=== PATIENT | female | born 1990 | race African-American/Black ===

== ENCOUNTER 2016-08-15 08:30 | Emergency (ER) | payer MEDICAID, OTHER ==
[~2016-08-15] VITALS: Ht 165.1 cm; Wt 107.0 kg
[~2016-08-15 08:30] MED LIST: DIFL150T PO; SPRI28TA PO
[2016-08-15 08:31] VITALS: BP 139/80; PULSE 90; RESP 20; TEMP 98.3; O2SAT 100
[2016-08-15] MEDS ORDERED: BENZ100 PO (09:01)
[2016-08-15] MEDS ORDERED: MOME17I EACH NARE (09:01)
[2016-08-15] MEDS ORDERED: IBUP800T23 PO (09:01)
--- NOTE | 2016-08-15 09:02 | PD ---
HPI Chief Complaint: Cold / Flu Symptoms Time Seen by Provider: 08:58 Travel History International Travel<30 days: No Contact w/Intl Traveler<30days: No Traveled to known affect area: No History of Present Illness HPI 26-year-old female presents to the emergency Department with complaint of nasal congestion cough, throat irritation 3 days. Denies fever, vomiting. Denies ear pain. Denies sore throat. Denies chest pain, shortness of breath. Reports sputum production. Has been taking [id number] medications with no relief of symptoms. No known allergies. Has no other medical complaints. No other modifying factors or associated signs and symptoms. PFSH Past Medical History Medical History: Denies Significant Hx Diminished Hearing: No Tetanus Vaccination: Never Vaccinated ?: Not : 2 Para: 2 Past Surgical History Section: Yes (X 2) Social History Alcohol Use: No Tobacco Use: No (3 cig a day ) Substance Use: No Allergies-Medications (Allergen,Severity, Reaction): Coded Allergies: No Known Allergies (Verified , 08/15/16) Reported Meds & Prescriptions Reported Meds & Active Scripts Active Nasonex Nasal [place] (Mometasone Furoate) 50 Mcg/Act Naspr 2 [place] EACH NARE DAILY Ibuprofen 800 Mg Tab 800 Mg PO Q6HR PRN Tessalon Perles (Benzonatate) 100 Mg Cap 100 Mg PO TID PRN Review of Systems Except as stated in HPI: all other systems reviewed are Neg Physical Exam Narrative GENERAL: Well-nourished, well-developed female patient, in no acute distress; afebrile, nontoxic-appearing SKIN: Warm and dry. No rash. HEAD: Atraumatic. Normocephalic. EYES: Pupils equal and round. No scleral icterus. No injection or drainage. ENT: Mucosa pink and moist. Oropharynx with erythema; without edema or exudates. No uvular edema. No uvular, palatal, or tonsillar deviation. Airway patent. EARS: Bilateral pinnae and external canals appear within normal limits. Bilateral tympanic membranes without erythema, dullness or perforation. NECK: Trachea midline. No lymphadenopathy. CARDIOVASCULAR: Regular rate and rhythm. No murmur appreciated. RESPIRATORY: No accessory muscle use. Clear to auscultation. Breath sounds equal bilaterally. No retractions or tachypnea. GASTROINTESTINAL: Abdomen soft, non-tender, nondistended. Hepatic and splenic margins not palpable. Bowel sounds are active 4 quadrants. MUSCULOSKELETAL: No obvious deformities. No clubbing. No cyanosis. No edema. NEUROLOGICAL: Awake and alert. Oriented 3. No obvious cranial nerve deficits. Motor grossly within normal limits. Normal speech. Moves all extremities. 5/5 strength to all extremities. PSYCHIATRIC: Appropriate mood and affect; insight and judgment normal. Data Data Last Documented VS Vital Signs Date Time Temp Pulse Resp B/P Pulse Ox O2 Delivery O2 Flow Rate FiO2 08/15/16 08:46 Room Air 08/15/16 08:31 98.3 90 20 139/80 100 MDM Medical Decision Making Medical Screen Exam Complete: Yes Emergency Medical Condition: Yes Medical Record Reviewed: Yes Differential Diagnosis Viral illness, upper respiratory infection, bronchitis Narrative Course 26-year-old female physical exam consistent with viral illness. Patient is afebrile and nontoxic-appearing. She denies fever, vomiting. Patient says she was exposed to strep pharyngitis by her children last week. Her oropharynx is erythemic and without edema or exudate. I offered to do a rapid strep the patient declined. Discussed viral illness and symptom management. Tiffany Cordero, ibuprofen, Nasonex nasal spray prescribed for home. Instructed patient to follow up with primary care provider. Patient verbalizes understanding and agreement with treatment plan. Patient is medically cleared and stable for discharge. Discussed reasons to return to the emergency department. Patient agrees with treatment plan. The patients vital signs are stable and the patient is stable for outpatient follow-up and treatment. Patient discharged home, stable and in no acute distress. Diagnosis Primary Impression: Viral illness Referrals: Primary Care Physician Patient Instructions: Cold Symptoms (ED), General Instructions, Safe Use of Cough and Cold Medicines (ED) Departure Forms: Tests/Procedures, Work Release Enter return to work date: Aug 17, 2016 Additional Instructions: Ibuprofen or Tylenol as instructed and as needed for fever/pain Fjqo-fey-yuswspk cough and cold medications as directed and as needed for symptom management Get plenty of sleep/rest Drink plenty of fluids to prevent dehydration; popsicles and Gatorade Use an air humidifier/turn off ceiling fans Follow-up with primary care provider Return immediately to the emergency department with worsening of symptoms Med/Other Pt SpecificInfo: Prescription(s) given Scripts Mometasone Nasal [place] (Nasonex Nasal [place])50 Mcg/Act Naspr2 [place] EACH NARE DAILY #1 BOTTLE Ref 0 Prov:Alia Milton 08/15/16 Ibuprofen 800 Mg [id number] Mg PO Q6HR PRN (PAIN) #30 TAB Ref 0 Prov:Alia Milton 08/15/16 Benzonatate (Tessalon Perles)100 Mg [id number] Mg PO TID PRN (COUGH) #10 CAP Ref 0 Prov:Alia Milton 08/15/16 Disposition: 01 DISCHARGE HOME Condition: Stable Alia Milton Aug 15, 2016 09:01
== END 2016-08-15 09:16 | disposition home or self-care (01) ==
LOC: NEPD 08:30
DX: B34.9 Viral infection, unspecified (principal); F17.210 Nicotine dependence, cigarettes, uncomplicated; Z79.899 Other long term (current) drug therapy
CPT/HCPCS: 99284

== ENCOUNTER 2016-11-17 08:25 | Emergency (ER) | payer MEDICAID, OTHER ==
[~2016-11-17] VITALS: Ht 165.1 cm; Wt 100.0 kg
[~2016-11-17 08:25] MED LIST changes: +BENZ100 PO; -DIFL150T PO; +IBUP800T23 PO; +MOME17I EACH NARE; -SPRI28TA PO
[2016-11-17 08:26] VITALS: BP 122/77; PULSE 66; RESP 16; TEMP 98.6; O2SAT 99
[2016-11-17 08:47] VITALS: BP 138/83; PULSE 96; RESP 18; TEMP 98.3; O2SAT 100
--- NOTE | 2016-11-17 08:50 | PD ---
HPI Chief Complaint: Abdominal Pain Time Seen by Provider: 08:50 Travel History International Travel<30 days: No Contact w/Intl Traveler<30days: No Traveled to known affect area: No History of Present Illness HPI 26-year-old female came to the emergency room with history of right flank and groin pain that has been going on for past 2-3 days. She is also complaining of lower back pain. Patient is 6 weeks . Her last menstrual cycle was in October 02. She had a home test done 1 week ago that was positive. She has an OB appointment in December 19. Meanwhile her symptoms started for past 2-3 days. No history of fever or chills. She has been nauseous but no vomiting. Patient denies of any vaginal bleeding or spotting. Pain is worse when she just goes to stand up or sit down. Pain is relieved when she is completely sitting down or after she has walked for a little bit. Patient is A0. Vital signs were stable. She is otherwise a relatively healthy person. She is complaining of some dysuria and frequency. She is not taking any medications are pills. [facility] Past Medical History Narrative Medical List of her past medical, surgical, social and family history is reviewed from the nursing note. Medical History: Denies Significant Hx Diminished Hearing: No Immunizations Current: Yes Tetanus Vaccination: < 5 Years Influenza Vaccination: No ?: LMP: 10/02/16 : 2 Para: 2 Past Surgical History Section: Yes (X 2) Social History Alcohol Use: No Tobacco Use: No Substance Use: No Allergies-Medications (Allergen,Severity, Reaction): Coded Allergies: No Known Allergies (Verified , 11/17/16) Comments No known drug allergies. Reported Meds & Prescriptions Reported Meds & Active Scripts Active Vitamin Formula Tb ( Vit/Iron Fumarate/FA) 27 Mg Iron-800 Mcg Tablet 1 Tab PO ONCE 30 Days Narrative Medication List of her home medications reviewed from the nursing note. Review of Systems Except as stated in HPI: all other systems reviewed are Neg Genitourinary: Positive: Pelvic Pain, Flank Pain Physical Exam Narrative GENERAL: Awake, alert, obese, no obvious distress SKIN: Focused skin assessment warm/dry. HEAD: Atraumatic. Normocephalic. EYES: Pupils equal and round. No scleral icterus. No injection or drainage. ENT: No nasal bleeding or discharge. Mucous membranes pink and moist. NECK: Trachea midline. No JVD. CARDIOVASCULAR: Regular rate and rhythm. No murmur appreciated. RESPIRATORY: No accessory muscle use. Clear to auscultation. Breath sounds equal bilaterally. GASTROINTESTINAL: Abdomen soft, non-tender, nondistended. Hepatic and splenic margins not palpable. MUSCULOSKELETAL: No obvious deformities. No clubbing. No cyanosis. No edema. NEUROLOGICAL: Awake and alert. No obvious cranial nerve deficits. Motor grossly within normal limits. Normal speech. PSYCHIATRIC: Appropriate mood and affect; insight and judgment normal. Data Data Last Documented VS Vital Signs Date Time Temp Pulse Resp B/P (MAP) Pulse Ox O2 Delivery O2 Flow Rate FiO2 11/17/16 11:19 11/17/16 08:47 98.3 96 18 100 Room Air Orders Orders Urinalysis - C+S If Indicated (11/17/16 08:59) Ed Poc Ultrasound (11/17/16 ) Acetaminophen (Tylenol) (11/17/16 10:45) Ed Discharge Order (11/17/16 10:37) Labs Laboratory Tests Test 11/17/16 09:15 Urine Color YELLOW Urine Turbidity CLEAR Urine pH 6.0 Urine Specific [place] 1.018 Urine Protein NEG mg/dL Urine Glucose (UA) NEG mg/dL Urine Ketones 40 mg/dL Urine Occult Blood NEG Urine Nitrite NEG Urine Bilirubin NEG Urine Urobilinogen LESS THAN 2.0 MG/DL Urine Leukocyte Esterase NEG Urine RBC LESS THAN 1 /hpf Urine WBC 2 /hpf Urine Squamous Epithelial Cells <1 /hpf Urine Mucus FEW /lpf Microscopic Urinalysis Comment CULT NOT INDICATED MDM Medical Decision Making Medical Screen Exam Complete: Yes Emergency Medical Condition: Yes Medical Record Reviewed: Yes Differential Diagnosis UTI, pyelonephritis, musculoskeletal pain, round ligament pain, ectopic Narrative Course 10:34 AM UA shows some ketones but otherwise negative. Bedside ultrasound shows a gestational sac. At this point I'm comfortable discharging her home. In my opinion patient has pain from the growing gravid uterus and round ligament pull. I will give her prescription for pills. She needs to follow up with her OB. She'll get some Tylenol for the pain here. Procedures Procedure Narrative Emergency Department Pelvic ultrasound was performed with patient consent. The curvilinear probe was used in the transverse and sagittal views within the suprapubic region revealing intrauterine gestational sac with no pole. EKG Prior to Arrival: No Diagnosis Primary Impression: First trimester Additional Impression: Pelvic pain during Referrals: Primary Care Physician Additional Instructions: Please follow-up with your OB as per the appointment date. Drink lots of fluid to keep herself hydrated. You can take Tylenol as needed for the pain. Return to the ER if the condition worsens or any other new concerns. Med/Other Pt SpecificInfo: Prescription(s) given Scripts Vit/Iron Fumarate/FA ( Vitamin Formula Tb) 27 Mg Iron-800 Mcg Tablet 1 TAB PO ONCE for 30 Days Prov: Boy Rodriguez MD 11/17/16 Disposition: 01 DISCHARGE HOME Condition: Stable Boy Rodriguez MD Nov 17, 2016 08:50
[2016-11-17 10:02] LABS: BLOOD, URINE NEG (NEG); COMMENT (UR) CULT NOT INDICATED; CULTURE IF INDICATED CULT NOT INDICATED; GLUCOSE,URINE NEG (NEG); KETONE, URINE 40 mg/dL (NEG); MUCUS URINE FEW /lpf (OCC); NITRITE,URINE NEG (NEG); SQUAMOUS EPITHELIAL CELL URINE <1 /hpf (0-5); URINE COLOR YELLOW (YELLW/STRAW)
[2016-11-17] MEDS ORDERED: PREN1TAB58 PO (10:37)
[2016-11-17] MEDS ORDERED: ACETAMINOPHEN 325 MG TAB PO ONE (10:45)
== END 2016-11-17 11:20 | disposition home or self-care (01) ==
LOC: NEPC 08:25
DX: O26.891 Other specified pregnancy related conditions, first trimester (principal); R10.2 Pelvic and perineal pain; M54.5 Low back pain; R11.0 Nausea; R30.0 Dysuria; R35.0 Frequency of micturition; Z3A.01 Less than 8 weeks gestation of pregnancy
CPT/HCPCS: 81001; 99283

== ENCOUNTER 2017-01-15 08:33 | Emergency (ER) | payer MEDICAID, OTHER ==
[~2017-01-15] VITALS: Ht 165.1 cm; Wt 100.0 kg
[2017-01-15 09:00] VITALS: BP 103/56; PULSE 85; RESP 18; O2SAT 98
[2017-01-15] MEDS ORDERED: SODIUM CHLORIDE 0.9% FLUSH 10 ML FLUSH IVF PRN (09:00)
[2017-01-15 09:24] LABS: AUTOMATED NEUTROPHIL # 7.3 TH/MM3 (1.8-7.7); BASOPHIL # 0.1 TH/MM3 (0-0.2); BASOPHIL % 0.5 % (0.0-2.0); EOSINOPHIL # 0.2 TH/MM3 (0-0.4); EOSINOPHIL % 1.9 % (0.0-4.0); HEMATOCRIT 30.2 % (35.0-46.0); HEMO FLAGS DIFF FINAL; LYMPH % 24.1 % (9.0-44.0); LYMPHOCYTE # 2.7 TH/MM3 (1.0-4.8); MEAN CELL VOLUME 89.9 FL (80.0-100.0); MEAN CORPUSCULAR HEMOGLOBIN 30.7 PG (27.0-34.0); MEAN CORPUSCULAR HGB CONC 34.1 % (32.0-36.0); MONO % 7.7 % (0.0-8.0); NEUT % 65.8 % (16.0-70.0); PLATELET COUNT 364 TH/MM3 (150-450); RED BLOOD COUNT 3.36 MIL/MM3 (4.00-5.30); RED CELL DISTRIBUTION WIDTH 11.6 % (11.6-17.2); WHITE BLOOD COUNT 11.1 TH/MM3 (4.0-11.0)
[2017-01-15 09:44] LABS: ALT (GPT) 30 U/L (10-53)
[2017-01-15 10:00] LABS: ALKALINE PHOSPHATASE 58 U/L (45-117); BETA HCG QUANT 27594 MIU/ML (0-5); TOTAL BILIRUBIN ADULT 0.3 MG/DL (0.2-1.0)
[2017-01-15 10:17] LABS: BLOOD, URINE NEG (NEG); COMMENT (UR) CULT NOT INDICATED; CULTURE IF INDICATED CULT NOT INDICATED; GLUCOSE,URINE NEG (NEG); KETONE, URINE 40 mg/dL (NEG); MUCUS URINE MOD /lpf (OCC); NITRITE,URINE NEG (NEG); SQUAMOUS EPITHELIAL CELL URINE 1 /hpf (0-5); URINE COLOR YELLOW (YELLW/STRAW)
[2017-01-15 10:19] LABS: ANION GAP 10 MEQ/L (5-15); AST (GOT) 27 U/L (15-37); BICARBONATE 22.9 MEQ/L (21.0-32.0); BLOOD UREA NITROGEN 16 MG/DL (7-18); CHLORIDE 104 MEQ/L (98-107); GLOMERULAR FILTRATION RATE 145 ML/MIN (>89); POTASSIUM 3.8 MEQ/L (3.5-5.1); SODIUM (NA) 137 MEQ/L (136-145)
--- NOTE | 2017-01-15 10:31 | PD ---
HPI Chief Complaint: Fall Time Seen by Provider: 08:49 Travel History International Travel<30 days: No Contact w/Intl Traveler<30days: No Traveled to known affect area: No History of Present Illness HPI 26 yo female arrives after falling at home. She is believed to be 4 months . She had an ultrasound 2 weeks ago which was normal. She reports waking up this morning feeling somewhat nauseated and went to the bathroom. She was slightly lightheaded and lost consciousness and fell to the ground. She thinks she maybe lost consciousness for a second or 2. No incontinence of urine or stool. She reports waking up with some cephalgia on the right side. No vaginal bleeding or discharge. No chest pain shortness of breath accompanied the presyncopal event. She reports a similar episode occurred with a prior . She reports a normal state of health over the past few days. She does attribute some constipation and nausea to her vitamins. She follows with Megan GAUTAM. [facility] Past Medical History Diminished Hearing: No Immunizations Current: Yes ?: LMP: 10/02/16 : 2 Para: 2 Past Surgical History Section: Yes (X 2) Social History Alcohol Use: No Tobacco Use: No Substance Use: No Allergies-Medications (Allergen,Severity, Reaction): Coded Allergies: No Known Allergies (Verified Adverse Reaction, Unknown, 12/19/16) Reported Meds & Prescriptions Reported Meds & Active Scripts Active Vitafol Fe+ 90-1-200 & 50 mg ( Vit W/ Fe Polysacch C) 90 Mg Iron-1 Mg- 50 Mg-200 Mg Cap Review of Systems Except as stated in HPI: all other systems reviewed are Neg General / Constitutional: No: Fever Cardiovascular: No: Chest Pain or Discomfort, Irregular Rhythm Respiratory: No: Shortness of Breath Physical Exam Narrative GENERAL: 26-year-old female no acute distress pleasant SKIN: Focused skin assessment warm/dry. HEAD: No evidence trauma. Normocephalic. EYES: Pupils equal and round. No scleral icterus. No injection or drainage. ENT: No nasal bleeding or discharge. Mucous membranes pink and moist. NECK: Trachea midline. No JVD. CARDIOVASCULAR: Regular rate and rhythm. No murmur appreciated. RESPIRATORY: No accessory muscle use. Clear to auscultation. Breath sounds equal bilaterally. GASTROINTESTINAL: Gravid abdomen. No focus of tenderness. MUSCULOSKELETAL: No obvious deformities. No clubbing. No cyanosis. No evidence DVT. NEUROLOGICAL: Awake and alert. No obvious cranial nerve deficits. Motor grossly within normal limits. Normal speech. PSYCHIATRIC: Appropriate mood and affect; insight and judgment normal. Data Data Last Documented VS Vital Signs Date Time Temp Pulse Resp B/P (MAP) Pulse Ox O2 Delivery O2 Flow Rate FiO2 01/15/17 09:00 85 18 103/56 (72) 98 Room Air vital signs reviewed temp 98.1 Orders Orders Electrocardiogram (01/15/17 08:53) Beta Hcg (Quant/Titer) (01/15/17 08:53) Complete Blood Count With Diff (01/15/17 08:53) Comprehensive Metabolic Panel (01/15/17 08:53) Urinalysis - C+S If Indicated (01/15/17 08:53) Blood Glucose (01/15/17 08:53) Ecg Monitoring (01/15/17 08:53) Iv Access Insert/Monitor (01/15/17 08:53) Oximetry (01/15/17 08:53) Sodium Chloride 0.9% Flush (Ns Flush) (01/15/17 09:00) Ed Discharge Order (01/15/17 10:31) Acetaminophen (Tylenol) (01/15/17 10:45) Labs Laboratory Tests Test 01/15/17 09:00 01/15/17 09:45 White Blood Count 11.1 TH/MM3 Red Blood Count 3.36 MIL/MM3 Hemoglobin 10.3 GM/DL Hematocrit 30.2 % Mean Corpuscular Volume 89.9 FL Mean Corpuscular Hemoglobin 30.7 PG Mean Corpuscular Hemoglobin Concent 34.1 % Red Cell Distribution Width 11.6 % Platelet Count 364 TH/MM3 Mean Platelet Volume 7.1 FL Neutrophils (%) (Auto) 65.8 % Lymphocytes (%) (Auto) 24.1 % Monocytes (%) (Auto) 7.7 % Eosinophils (%) (Auto) 1.9 % Basophils (%) (Auto) 0.5 % Neutrophils # (Auto) 7.3 TH/MM3 Lymphocytes # (Auto) 2.7 TH/MM3 Monocytes # (Auto) 0.9 TH/MM3 Eosinophils # (Auto) 0.2 TH/MM3 Basophils # (Auto) 0.1 TH/MM3 CBC Comment DIFF FINAL Differential Comment Blood Urea Nitrogen 16 MG/DL Creatinine 0.61 MG/DL Random Glucose 87 MG/DL Total Protein 7.2 GM/DL Albumin 2.8 GM/DL Calcium Level 8.5 MG/DL Alkaline Phosphatase 58 U/L Aspartate Amino Transf (AST/SGOT) 27 U/L Alanine Aminotransferase (ALT/SGPT) 30 U/L Total Bilirubin 0.3 MG/DL Sodium Level 137 MEQ/L Potassium Level 3.8 MEQ/L Chloride Level 104 MEQ/L Carbon Dioxide Level 22.9 MEQ/L Anion Gap 10 MEQ/L Estimat Glomerular Filtration Rate 145 ML/MIN Human Chorionic Gonadotropin, Quant 42867 MIU/ML Urine Color YELLOW Urine Turbidity CLEAR Urine pH 6.0 Urine Specific [place] 1.028 Urine Protein TRACE mg/dL Urine Glucose (UA) NEG mg/dL Urine Ketones 40 mg/dL Urine Occult Blood NEG Urine Nitrite NEG Urine Bilirubin NEG Urine Urobilinogen 2.0 MG/DL Urine Leukocyte Esterase NEG Urine RBC 1 /hpf Urine WBC 1 /hpf Urine Squamous Epithelial Cells 1 /hpf Urine Mucus MOD /lpf Microscopic Urinalysis Comment CULT NOT INDICATED MDM Medical Decision Making Medical Screen Exam Complete: Yes Emergency Medical Condition: Yes Medical Record Reviewed: Yes Differential Diagnosis Arrhythmia, vasovagal episode, seizure, anemia, metabolic disarray, UTI Narrative Course EKG shows a sinus rhythm. The patient has been on the monitor since arrival and there has been no arrhythmia or evidence of preexcitation. EKG read is sinus rhythm rate 79 normal axis intervals CBC & BMP Diagram 01/15/17 09:00 Total Protein 7.2, Albumin 2.8 L, Calcium Level 8.5, Alkaline Phosphatase 58, Aspartate Amino Transf (AST/SGOT) 27, Alanine Aminotransferase (ALT/SGPT) 30, Total Bilirubin 0.3 The patient is well-appearing. That urinalysis shows no UTI She requested a bedside ultrasound which was done by me and we could observe a heart rate of 150 with normal activity. Patient reassured. Pt has appointment with Megan Milner tomorrow Diagnosis Primary Impression: Syncope and collapse Additional Impression: Qualified Codes: Z3A.16 - 16 weeks gestation of Referrals: Enedelia Fung 2 days Med/Other Pt SpecificInfo: No Change to Meds Disposition: 01 DISCHARGE HOME Condition: Stable Mo Lawson MD Jan 15, 2017 10:31
[2017-01-15] MEDS ORDERED: ACETAMINOPHEN 325 MG TAB PO ONE (10:45)
[2017-01-15 12:05] VITALS: BP 103/63
[2017-01-16] MEDS ORDERED: CONCCAP2 PO (10:02)
[2017-01-16] MEDS ORDERED: FERRTAB2 PO (11:40)
--- NOTE | 2017-01-16 17:41 | EKG ---
Date Performed: 01/15/2017 Time Performed: 09:00:13 PTAGE: 26 years EKG: Sinus rhythm NORMAL ECG NO PREVIOUS TRACING DOCTOR: Law Sharp Interpretating Date/Time 01/16/2017 17:40:04
== END 2017-01-15 12:07 | disposition home or self-care (01) ==
LOC: NEPC 08:33
DX: O26.892 Other specified pregnancy related conditions, second trimester (principal); R55 Syncope and collapse; R42 Dizziness and giddiness; Z3A.16 16 weeks gestation of pregnancy; Z34.92 Encounter for supervision of normal pregnancy, unspecified, second trimester
CPT/HCPCS: 80053; 81001; 84702; 85025; 93005; 99285

== ENCOUNTER 2017-06-12 15:53 | Emergency (ER) | payer MEDICAID ==
[2017-06-12] MEDS: ONDANSETRON ODT 4 MG TAB PO (17:30)
[2017-06-12 21:01] LABS: BACTERIA, URINE OCC /hpf; BILIRUBIN, URINE NEG (NEG); BLOOD, URINE NEG (NEG); COMMENT (UR) CULT NOT INDICATED; CULTURE IF INDICATED CULT NOT INDICATED; GLUCOSE,URINE NEG (NEG); KETONE, URINE 150 mg/dL (NEG); MUCUS URINE FEW /lpf (OCC); NITRITE,URINE NEG (NEG); SQUAMOUS EPITHELIAL CELL URINE 17 /hpf (0-5); URINE COLOR LIGHT-YELLOW (YELLW/STRAW); URINE LEUKOCYTE ESTERASE LARGE (NEG)
== END 2017-06-13 01:41 | disposition home or self-care (01) ==
LOC: HOBED 06-13 01:41 → NEPD 15:53
DX: O21.2 Late vomiting of pregnancy (principal); O99.013 Anemia complicating pregnancy, third trimester; Z3A.36 36 weeks gestation of pregnancy
CPT/HCPCS: 59025; 81001; 99283-25

== ENCOUNTER 2017-07-04 10:00 | Inpatient (IN) | payer MEDICAID ==
[~2017-07-04] VITALS: Ht 165.1 cm; Wt 98.0 kg
[~2017-07-04 10:00] MED LIST changes: -BENZ100 PO; +CONCCAP2; +FERRCAP6; -IBUP800T23 PO; -MOME17I EACH NARE; +PREN1CAP33 PO; +ZOFR8TAB PO
[2017-07-04] MEDS ORDERED: DEXAMETHASONE SOD PHOS 4 MG/ML VIAL IV ONE (12:00)
[2017-07-04] MEDS ORDERED: OXYTOCIN 10 UNIT/ML AMP IV ONE (12:00)
[2017-07-04] MEDS ORDERED: LIDOCAINE 2%/EPINEPHrine PF 1:200,000 20ML SDV OTHER ONE (12:00)
[2017-07-04] MEDS ORDERED: ONDANSETRON HCL 4 MG/2 ML VIAL IV ONE (12:00)
[2017-07-04] MEDS ORDERED: KETOROLAC TROMETHAMINE 30 MG/ML (IVP) VIAL IV PUSH ONE (12:00)
[2017-07-04] MEDS ORDERED: LACTATED RINGER'S 1000 ML INJ 1,000 ML IV ONE (12:42)
--- NOTE | 2017-07-04 12:57 | HHI.HP ---
History & Physical H&P HPI Chief Complaint Scheduled with tubal ligation Date Seen: July 04, 2017 Travel History International Travel<30 Days: No Contact w/Intl Traveler<30Days: No Known Affected Area: No History of Present Illness HPI The patient is a 27-year-old at 39/1 weeks gestation who presents today for her scheduled with tubal ligation. [facility]. Patient has history of 2 prior C-sections. has been complicated by anemia as well as failed one hour glucose tolerance test however she passed her three hour glucose tolerance testing. She otherwise denies any complications. She denies any concerns or questions at this time. She denies any medication allergies. Para: 2 : 3 History Past Medical History Narrative Medical Anemia Obstetric History Obstetric History Previous 2 Past Surgical History Narrative Surgical 2 Family History Family History: Negative Social History Alcohol Use: No Tobacco Use: No Substance Abuse: No Allergies-Medications (Allergen,Severity, Reaction): Coded Allergies: No Known Allergies (Verified Adverse Reaction, Unknown, 06/12/17) Home Meds Active Scripts Ondansetron (Zofran) 8 Mg Tab, 8 MG PO TID for Nausea/Vomiting for 7 Days, #21 TAB 0 Refills Prov:Dulce Tanner MD 06/12/17 Vit W/ Fe Polysacch C (Vitafol Fe+ 90-1-200 & 50 mg) 90 Mg Iron-1 Mg- 50 Mg-200 Mg Cap, 1 TAB PO DAILY, #30 BOTTLE 11 Refills Prov:Enedelia Fung 02/28/17 Reported Medications Ferrous Fumarate-Iron Polysacc (Integra F 125-1 mg) 125 Mg-1 Mg-40 Mg-3 Mg Cap 06/12/17 Vit W/ Fe Fum-Iron Po (Concept Dha 53.5-38-1 mg) 35 Mg-1 Mg-200 Mg Cap 06/12/17 Review of Systems Except as stated in HPI: all other systems reviewed are Neg Physical Exam Narrative GENERAL: Well-nourished, well-developed patient. SKIN: Warm and dry. HEAD: Normocephalic and atraumatic. EYES: No scleral icterus. No injection or drainage. ENT: No nasal drainage noted. Mucous membranes pink. Airway patent. NECK: Supple, trachea midline. No JVD. CARDIOVASCULAR: Regular rate and rhythm without murmurs, gallops, or rubs. RESPIRATORY: Breath sounds equal bilaterally. No accessory muscle use. ABDOMEN/GI: Abdomen soft, non-tender, bowel sounds present, no rebound, no guarding Gravid to 39 weeks size EXTREMITIES: No cyanosis or edema. BACK: Nontender without obvious deformity. No CVA tenderness. NEUROLOGICAL: Awake and alert. Motor and sensory grossly within normal limits. Normal speech. Data Data Vital Signs Reviewed: Yes Orders Orders Admit To Inpatient (07/04/17 ) Code Status (07/04/17 12:42) Vital Signs (Adult) .ON ADMISSION (07/04/17 12:42) Activity Oob Ad Lauren (07/04/17 12:42) Heart (07/04/17 12:42) Urinary Catheter Management KYLEIGH.Q8H (07/04/17 12:42) ^ Preps (07/04/17 12:42) Scd / Waqar / Foot Pump KYLEIGH.QSHIFT (07/04/17 12:42) ^ Ultrasound For Locatio (07/04/17 12:42) Diet Npo (07/04/17 Lunch) Lactated Ringer's 1000 Ml Inj (Lr 1000 M (07/04/17 12:42) Lactated Ringer's 1000 Ml Inj (Lr 1000 M (07/04/17 13:12) Cefazolin 2 Gm Premix (Ancef 2 Gm Premix (07/04/17 13:45) Citric Acid-Sodium Citrate Liq (Bicitra (07/04/17 14:15) Type And Screen (07/04/17 12:42) Complete Blood Count With Diff (07/04/17 12:42) Urinalysis - C+S If Indicated (07/04/17 12:42) Drug Screen, Random Urine (07/04/17 12:42) Inpatient Certification (07/04/17 ) Specimen To Be Collected PRN (07/04/17 12:42) Specimen To Be Collected PRN (07/04/17 12:42) [facility] Medical Record Reviewed: Yes Plan 27 year old at 39/1 weeks gestation presents for her scheduled with tubal ligation. Patient was seen and examined with Dr. Natarajan. Will give Ancef 2 g IV 1 prior to incision. CBC, type and screen. All questions and concerns were addressed at this time prior to her surgery. Sahil Calvin MD R2 July 04, 2017 12:57
[2017-07-04] MEDS ORDERED: LACTATED RINGER'S 1000 ML INJ 1,000 ML IV SCH (13:12)
[2017-07-04 13:16] LABS: AUTOMATED NEUTROPHIL # 5.3 TH/MM3 (1.8-7.7); BASOPHIL % 0.2 % (0.0-2.0); EOSINOPHIL # 0.1 TH/MM3 (0-0.4); EOSINOPHIL % 1.7 % (0.0-4.0); HEMATOCRIT 29.3 % (35.0-46.0); HEMOGLOBIN 9.9 GM/DL (11.6-15.3); LYMPH % 25.4 % (9.0-44.0); LYMPHOCYTE # 2.1 TH/MM3 (1.0-4.8); MEAN CELL VOLUME 88.2 FL (80.0-100.0); MEAN CORPUSCULAR HEMOGLOBIN 29.8 PG (27.0-34.0); MEAN CORPUSCULAR HGB CONC 33.8 % (32.0-36.0); MONO % 7.5 % (0.0-8.0); MONOCYTE # 0.6 TH/MM3 (0-0.9); NEUT % 65.2 % (16.0-70.0); PLATELET COUNT 307 TH/MM3 (150-450); RED BLOOD COUNT 3.32 MIL/MM3 (4.00-5.30); RED CELL DISTRIBUTION WIDTH 12.2 % (11.6-17.2); WHITE BLOOD COUNT 8.1 TH/MM3 (4.0-11.0)
[2017-07-04] MEDS ORDERED: ACETAMINOPHEN 1000 MG/100 ML 100 ML IV ONE (13:19)
[2017-07-04 13:29] LABS: AMORPHOUS SEDIMENT, URINE RARE; BACTERIA, URINE FEW /hpf; BILIRUBIN, URINE NEG (NEG); BLOOD, URINE NEG (NEG); GLUCOSE,URINE NEG (NEG); KETONE, URINE 40 mg/dL (NEG); MUCUS URINE FEW /lpf (OCC); NITRITE,URINE NEG (NEG); SQUAMOUS EPITHELIAL CELL URINE 2 /hpf (0-5); TRICHOMONAS, URINE RARE; URINE COLOR YELLOW (YELLW/STRAW); URINE LEUKOCYTE ESTERASE LARGE (NEG)
[2017-07-04] MEDS ORDERED: ceFAZolin 2 GM PREMIX 50 ML IV SCH (13:45)
[2017-07-04] MEDS ORDERED: MORPHINE SULFATE PF 5 MG/10 ML VIAL ONE (13:50)
[2017-07-04] MEDS ORDERED: CITRIC ACID-SODIUM CITRATE LIQ 30 ML UDC PO SCH (14:15)
[2017-07-04] MEDS ORDERED: EPIDURAL-DIPHENHYDRAMINE HCL 50 MG CAP PO PRN ×2 (14:37→17:30)
[2017-07-04] MEDS ORDERED: EPIDURAL-NO SYSTEMIC NARCOTICS PRN ×2 (14:37→17:30)
[2017-07-04] MEDS ORDERED: EPIDURAL-NALOXONE HCL 0.4 MG/ML AMP IV PUSH PRN ×2 (14:37→17:30)
[2017-07-04] MEDS ORDERED: EPIDURAL-DIPHENHYDRAMINE HCL 50 MG/ML VIAL IV PUSH PRN ×2 (14:37→17:30)
[2017-07-04] MEDS ORDERED: EPIDURAL-DO NOT ADMINISTER ANTICOAGULANTS PRN ×2 (14:37→17:30)
[2017-07-04] MEDS ORDERED: LIDOCAINE 1.5%/EPINEPHrine 1:200,000 PF SOLN 10ML SDV ONE (15:06)
[2017-07-04] MEDS ORDERED: LIDOCAINE 1.5%/EPINEPHrine 1:200,000 PF 5 ML AMP ONE (15:08)
[2017-07-04] MEDS ORDERED: LIDOCAINE 1%/EPINEPHrine 1:100,000 SOLN 30 ML VIAL ONE (15:11)
[2017-07-04] MEDS ORDERED: OXYTOCIN 30 UNITS-500ML PREMIX 500 ML IV ONE (15:30)
[2017-07-04] MEDS ORDERED: KETOROLAC TROMETHAMINE 60 MG/2 ML (IM) VIAL IM PRN ×2 (15:30)
[2017-07-04] MEDS ORDERED: SIMETHICONE 80 MG CHEWABLE TAB PO PRN (15:30)
[2017-07-04] MEDS ORDERED: SODIUM CHLORIDE 0.9% FLUSH 10 ML FLUSH IV FLUSH PRN (15:30)
[2017-07-04] MEDS ORDERED: ZOLPIDEM TARTRATE 5 MG TAB PO PRN (15:30)
[2017-07-04] MEDS ORDERED: ACETAMINOPHEN 325 MG TAB PO PRN (15:30)
[2017-07-04] MEDS ORDERED: OXYTOCIN 30 UNITS-500ML PREMIX 500 ML ONE (15:31)
[2017-07-04] MEDS ORDERED: MORPHINE SULFATE 4 MG/ML INJ ONE (15:42)
--- NOTE | 2017-07-04 15:49 | MP ---
cc: Nba Sellers MD DATE OF OPERATION: 07/04/2017 PREOPERATIVE DIAGNOSIS: Intrauterine at 39 and 1/7 weeks, history of prior delivery, desires repeat. POSTOPERATIVE DIAGNOSIS: Intrauterine at 39 and 1/7 weeks, history of prior delivery, desires repeat. PROCEDURE PERFORMED: Low transverse delivery via Pfannenstiel skin incision. SURGEON: Nba Natarajan MD DIVISION HUMAN RESOURCES MANAGER: Kirsten, PGY-3. ESTIMATED BLOOD LOSS: 700 mL. URINE OUTPUT: Clear urine throughout the procedure. ANESTHESIA: Spinal anesthesia with Duramorph. COMPLICATIONS: None. FINDINGS: A viable male infant in cephalic presentation with scores of 8 at 1 minute and 9 at 5 minutes, weight was 2820 grams. INDICATIONS FOR PROCEDURE: This is a 27-year-old, now -0-0-3, at 39-1/7 weeks, who presented to the labor and delivery for repeat delivery and tubal ligation. Upon consultation, the patient no longer desires a tubal ligation and just desirous of repeat delivery. DESCRIPTION OF PROCEDURE: The patient was taken to the operating room with IV fluids running. Spinal anesthesia with Duramorph was applied and found to be adequate. She was prepped and draped in the dorsal supine position with a leftward tilt. She was identified as Roshiekyasmine Hernandez. Pfannenstiel skin incision was performed and carried down to the underlying layer of fascia with the Bovie. The fascia was incised in the midline and extended sharply. Khurram clamps were used to grasp the superior aspect of the fascial incision. The underlying rectus muscles were dissected sharply. Bleeding were noted on the rectus muscles at the lower aspect of the fascial incision. This was made hemostatic with a [id number] 0 Vicryl suture. The rectus muscles were in the midline and the parietal peritoneum was identified and entered sharply, was extended superiorly and inferiorly with good visualization of the bladder. The bladder blade was inserted. A few filmy adhesions were noted to the uterine corpus and the knife was used to incise the lower uterine segment above the bladder flap and the uterine incision was extended bluntly without difficulty. The infant's head was brought to the uterine incision and delivered without difficulty or trauma. The rest of the was delivered without difficulty or trauma. Delayed cord clamping was performed. It was then doubly clamped and cut, and the was handed to the waiting resuscitation team. Cord bloods were obtained. The placenta was then delivered without difficulty. Uterus was then exteriorized and cleared of all clots and debris. The uterine incision was closed with 0 Vicryl in a running fashion. A second 0 Vicryl was used to perform an imbricating layer. Multiple areas of oozing were noted along the uterine incision and these were made hemostatic with multiple [id number] sutures. Excellent hemostasis was noted. The uterus was returned to the abdominal cavity. The pelvis and abdominal cavity were copiously irrigated with normal saline. Again, the uterine incision was noted to be hemostatic and the parietal peritoneum was reapproximated with multiple interrupted 3-0 plain gut sutures in an interrupted fashion. Subfascial tissues were noted to be hemostatic and the rectus fascia was closed with an 0 PDS suture in a running fashion. Subcuticular tissues were noted to be hemostatic, and the skin was closed with isrrael. Sponge, lap and needle counts were correct x 2. The patient received 2 grams of Ancef prior to the procedure and was transferred to PACU in stable condition. MD BRENT Patricio Jr/PITO , 03:30 PM , 03:49 PM
[2017-07-04] MEDS ORDERED: MORPHINE SULFATE 4 MG/ML INJ IV ONE (17:00)
[2017-07-04] MEDS ORDERED: HYDROmorphone HCL PF 0.5 MG/0.5 ML SYRINGE IV PRN (17:30)
[2017-07-04] MEDS: ONDANSETRON ODT 4 MG TAB PO PRN ×2 (19:54→23:28)
[2017-07-04] MEDS ORDERED: OXYTOCIN 30 UNITS-500ML PREMIX 500 ML IV PRN (20:30)
[2017-07-04] MEDS: LACTATED RINGER'S 1000 ML INJ 1,000 ML IV SCH (21:00)
[2017-07-05] MEDS ORDERED: PROMETHAZINE INJ 25 MG/ML VIAL IV-CENTRAL SCH (01:15)
[2017-07-05] MEDS ORDERED: ONDANSETRON ODT 4 MG TAB PO SCH (01:15)
[2017-07-05] MEDS ORDERED: PROMETHAZINE INJ 25 MG/ML VIAL IV-CENTRAL PRN (01:30)
[2017-07-05] MEDS ORDERED: PROMETHAZINE INJ 25 MG/ML VIAL IM SCH (01:30)
[2017-07-05] MEDS ORDERED: PROMETHAZINE INJ 25 MG/ML VIAL IM PRN (01:30)
[2017-07-05] MEDS: LACTATED RINGER'S 1000 ML INJ 1,000 ML IV SCH (05:32)
[2017-07-05 05:47] LABS: AUTOMATED NEUTROPHIL # 10.1 TH/MM3 (1.8-7.7); BASOPHIL % 0.1 % (0.0-2.0); HEMATOCRIT 24.5 % (35.0-46.0); HEMOGLOBIN 8.3 GM/DL (11.6-15.3); LYMPH % 13.6 % (9.0-44.0); LYMPHOCYTE # 1.7 TH/MM3 (1.0-4.8); MEAN CELL VOLUME 88.3 FL (80.0-100.0); MEAN CORPUSCULAR HEMOGLOBIN 29.8 PG (27.0-34.0); MEAN CORPUSCULAR HGB CONC 33.8 % (32.0-36.0); MEAN PLATELET VOLUME 7.8 FL (7.0-11.0); MONO % 5.8 % (0.0-8.0); MONOCYTE # 0.7 TH/MM3 (0-0.9); NEUT % 80.5 % (16.0-70.0); PLATELET COUNT 304 TH/MM3 (150-450); RED BLOOD COUNT 2.78 MIL/MM3 (4.00-5.30); RED CELL DISTRIBUTION WIDTH 12.3 % (11.6-17.2); WHITE BLOOD COUNT 12.6 TH/MM3 (4.0-11.0)
[2017-07-05 08:00] VITALS: BP 110/71; PULSE 60; RESP 18; TEMP 98
--- NOTE | 2017-07-05 08:49 | HHI.OB ---
Subjective Post Operative Day: 1 Remarks Patient seen and examined this morning. AFVSS overnight. Postoperative day #1. Patient states her pain has been well-controlled. She reports a mild amount of bleeding and drainage onto her bandage following her surgery, however she states overnight and this morning she has not noticed any further drainage. She denies any pain or tenderness around her incision site. Denies fevers or chills. Decreased lochia. Denies dysuria. No breast tenderness. No nausea or vomiting. Has not yet eaten breakfast this morning. Endorses positive flatus. Ambulating well within room. Denies chest pain, calf pain, shortness of breath, or cough. She otherwise has no other complaints or concerns this morning. Objective Result Diagram: 07/05/17 0530 Objective Remarks GENERAL: Well-nourished, well-developed patient. CARDIOVASCULAR: Regular rate and rhythm without murmurs, gallops, or rubs. RESPIRATORY: Breath sounds equal bilaterally. No accessory muscle use. ABDOMEN/GI: Abdomen soft, non-tender, bowel sounds present. Incision: Clean, dry and intact. [place] intact. Dressing with mild amount of dried blood, no active bleeding or drainage. Fundus: Firm, non-tender at umbilicus. GENITOURINARY: Light to moderate bleeding. EXTREMITIES: No cyanosis or edema, non-tender, without signs of DVT. Medications and IVs Current Medications Medications (Trade) Dose Ordered Sig/Brayden Route Start Time Stop Time Status Last Admin Lactated Ringer's 1,000 ml @ 100 mls/hr Q10H IV 07/04/17 20:22 07/05/17 16:21 07/05/17 05:32 Oxytocin 500 ml @ 100 mls/hr UNSCH X1 PRN IV 07/04/17 20:30 07/05/17 20:29 (NS Flush) 2 ml BID IV FLUSH 07/04/17 21:00 (NS Flush) 2 ml UNSCH PRN IV FLUSH 07/04/17 15:30 (Mylicon Chew) 80 mg QID PRN PO 07/04/17 15:30 (Tylenol) 650 mg Q6H PRN PO 07/04/17 15:30 (Motrin) 600 mg Q6H PRN PO 07/04/17 15:30 (Toradol Inj) 60 mg UNSCH X1 PRN IM 07/04/17 15:30 07/05/17 15:29 (Toradol Inj) 30 mg Q6H PRN IM 07/04/17 15:30 07/05/17 15:29 07/05/17 00:52 (Percocet 5-325 Mg) 1 tab Q4H PRN PO 07/04/17 15:30 (Percocet 5-325 Mg) 2 tab Q4H PRN PO 07/04/17 15:30 (Karuna-Colace) 2 tab Q12H PRN PO 07/04/17 15:30 (Ambien) 5 mg HS PRN PO 07/04/17 15:30 (M-M-R Ii Inj) 0.5 ml ONCE ONCE SQ 07/05/17 16:00 07/05/17 16:01 (Boostrix Inj) 0.5 ml ONCE ONCE IM 07/05/17 16:00 07/05/17 16:01 (Zofran Odt) 4 mg Q4H PRN PO 07/04/17 15:30 07/04/17 23:28 ([facility] Nursing Information) NO SYSTEMIC NARCOTICS TO BE GIVEN FO... UNSCH PRN .XX 07/04/17 14:37 07/05/17 14:36 (Narcan Inj) 0.4 mg UNSCH PRN IV PUSH 07/04/17 14:37 07/05/17 14:36 (Benadryl Inj) 25 mg Q6H PRN IV PUSH 07/04/17 14:37 07/05/17 14:36 (Benadryl) 50 mg Q6H PRN PO 07/04/17 14:37 07/05/17 14:36 07/04/17 18:10 ([facility] Nursing Information) ALL NURSING DEPARTMENTS UNSCH PRN .XX 07/04/17 14:37 07/05/17 14:36 (Dilaudid Pf Inj) 1 mg Q2H PRN IV 07/04/17 17:30 ([facility] Nursing Information) NO SYSTEMIC NARCOTICS TO BE GIVEN FO... UNSCH PRN .XX 07/04/17 17:30 07/05/17 17:29 (Narcan Inj) 0.4 mg UNSCH PRN IV PUSH 07/04/17 17:30 07/05/17 17:29 (Benadryl Inj) 25 mg Q6H PRN IV PUSH 07/04/17 17:30 07/05/17 17:29 (Benadryl) 50 mg Q6H PRN PO 07/04/17 17:30 07/05/17 17:29 ([facility] Nursing Information) ALL NURSING DEPARTMENTS UNSCH PRN .XX 07/04/17 17:30 07/05/17 17:29 (Phenergan Inj) 25 mg Q6H PRN IM 07/05/17 01:30 Assessment/Plan Problem List: (1) care following delivery ICD Codes: Z39.2 - Encounter for routine follow-up Assessment and Plan 27 year-old now POD#1 s/p repeat . 1. Postoperative Care - AFVSS - Incision c/d/i - Postop H&H 8.3/24.5, from 9.9/29.3 - Percocet and Motrin prn pain - Encouraged OOB, as tolerated - Advised pelvic rest x 6 weeks - Contraception: Patient did not have bilateral tubal ligation performed as she did not desire this. Discussed contraception with patient this morning, patient desiring Depo-Provera - Instructed patient to follow-up in 1 week with her OB provider for incision check after stable for hospital discharge wdw OB hospitalist Discharge Planning Anticipate discharge home in 1-2 days pending stable clinical course Sahil Calvin MD R2 July 05, 2017 08:49
[2017-07-05] MEDS ORDERED: medroxyPROGESTERone ACETATE SUSP 150 MG/ML SYRINGE IM ONE (09:00)
[2017-07-05] MEDS: SODIUM CHLORIDE 0.9% FLUSH 10 ML FLUSH IV FLUSH SCH (09:00)
[2017-07-05] MEDS: DOCUSATE SODIUM 50 MG/SENNA 8.6 MG TAB PO PRN (09:16)
[2017-07-05] MEDS: oxyCODONE/ACETAMINOPHEN 5 MG/325 MG TAB PO PRN ×3 (09:18→22:21)
[2017-07-05] MEDS: IBUPROFEN 600 MG TAB PO PRN ×3 (09:18→22:21)
[2017-07-05] MEDS ORDERED: LACTATED RINGER'S 1000 ML INJ 1,000 ML IV ONE (09:45)
[2017-07-05] MEDS ORDERED: MEASLES, MUMPS, RUBELLA VACCINE 0.5 ML VIAL SQ ONE (16:00)
[2017-07-05] MEDS ORDERED: DIPHTH/TETANUS/ACEL PERTUSSIS (BOOSTER) 0.5 ML VIAL/PFS IM ONE (16:00)
[2017-07-05 20:05] VITALS: BP 124/77; PULSE 82; RESP 18; TEMP 98.4
[2017-07-06] MEDS: oxyCODONE/ACETAMINOPHEN 5 MG/325 MG TAB PO PRN ×6 (02:20→23:42)
[2017-07-06] MEDS: DOCUSATE SODIUM 50 MG/SENNA 8.6 MG TAB PO PRN ×3 (02:20→23:41)
[2017-07-06] MEDS: IBUPROFEN 600 MG TAB PO PRN ×4 (06:26→23:41)
--- NOTE | 2017-07-06 08:44 | HHI.OB ---
Subjective Post Operative Day: 2 Remarks Patient seen and examined this morning. AFVSS overnight. Postoperative day #2. Patient states her pain has been up to a 10/10, she reports has been better controlled after taking Percocet and Motrin. Incision not draining. Decreased lochia. Denies dysuria. No breast tenderness. Appetite good. No nausea or vomiting. Endorses positive flatus. Denies fevers or chills, calf pain, shortness of breath, or cough. She otherwise has no other complaints or concerns this morning. Objective Vitals/I&O Vital Signs Date Time Temp Pulse Resp B/P (MAP) Pulse Ox O2 Delivery O2 Flow Rate FiO2 07/05/17 20:05 98.4 82 18 124/77 (93) Result Diagram: 07/05/17 0530 Objective Remarks GENERAL: Well-nourished, well-developed patient. CARDIOVASCULAR: Regular rate and rhythm without murmurs, gallops, or rubs. RESPIRATORY: Breath sounds equal bilaterally. No accessory muscle use. ABDOMEN/GI: Abdomen soft, non-tender, bowel sounds present. Incision: Clean, dry and intact. [place] intact. Fundus: Firm, non-tender at umbilicus. GENITOURINARY: Light to moderate bleeding. EXTREMITIES: No cyanosis or edema, non-tender, without signs of DVT. Medications and IVs Current Medications Medications (Trade) Dose Ordered Sig/Brayden Route Start Time Stop Time Status Last Admin (NS Flush) 2 ml BID IV FLUSH 07/04/17 21:00 (NS Flush) 2 ml UNSCH PRN IV FLUSH 07/04/17 15:30 (Mylicon Chew) 80 mg QID PRN PO 07/04/17 15:30 07/06/17 08:32 (Tylenol) 650 mg Q6H PRN PO 07/04/17 15:30 (Motrin) 600 mg Q6H PRN PO 07/04/17 15:30 07/06/17 06:26 (Percocet 5-325 Mg) 1 tab Q4H PRN PO 07/04/17 15:30 07/05/17 17:48 (Percocet 5-325 Mg) 2 tab Q4H PRN PO 07/04/17 15:30 07/06/17 06:25 (Karuna-Colace) 2 tab Q12H PRN PO 07/04/17 15:30 07/06/17 02:20 (Ambien) 5 mg HS PRN PO 07/04/17 15:30 (Zofran Odt) 4 mg Q4H PRN PO 07/04/17 15:30 07/04/17 23:28 (Dilaudid Pf Inj) 1 mg Q2H PRN IV 07/04/17 17:30 (Phenergan Inj) 25 mg Q6H PRN IM 07/05/17 01:30 Assessment/Plan Problem List: (1) care following delivery ICD Codes: Z39.2 - Encounter for routine follow-up Assessment and Plan 27 year-old now POD#2 s/p repeat . 1. Postoperative Care - AFVSS - Incision c/d/i - Postop H&H 8.3/24.5, from 9.9/29.3 - Percocet and Motrin prn pain - Encouraged OOB, as tolerated - Advised pelvic rest x 6 weeks - Contraception: Patient did not have bilateral tubal ligation performed as she did not desire this. Discussed contraception with patient this morning, patient no longer desiring Depo-Provera, desires OCPs - Instructed patient to follow-up in 1 week with her OB provider for incision check after stable for hospital discharge dw OB hospitalist Discharge Planning Anticipate discharge home tomorrow pending stable clinical course Sahil Calvin MD R2 July 06, 2017 08:44
[2017-07-06] MEDS: SODIUM CHLORIDE 0.9% FLUSH 10 ML FLUSH IV FLUSH SCH (09:00)
[2017-07-06] MEDS ORDERED: DIPHTH/TETANUS/ACEL PERTUSSIS (BOOSTER) 0.5 ML VIAL/PFS IM ONE (16:00)
[2017-07-06 20:38] VITALS: BP 137/89; PULSE 70; RESP 18; TEMP 98.8
[2017-07-07] MEDS: oxyCODONE/ACETAMINOPHEN 5 MG/325 MG TAB PO PRN ×3 (03:42→13:19)
[2017-07-07] MEDS: IBUPROFEN 600 MG TAB PO PRN ×2 (05:54→13:18)
--- NOTE | 2017-07-07 08:25 | HHI.OB ---
Subjective Post Operative Day: 3 Remarks Patient seen and examined this morning. AFVSS overnight. Postoperative day #3. Patient states her pain is been better controlled. Incision not draining. Decreased lochia. Denies dysuria. No breast tenderness. Appetite good. No nausea or vomiting. Endorses flatus. Ambulating well. Denies fevers or chills, calf pain, shortness of breath, or cough. She otherwise has no other complaints or concerns this morning. Objective Vitals/I&O Vital Signs Date Time Temp Pulse Resp B/P (MAP) Pulse Ox O2 Delivery O2 Flow Rate FiO2 07/06/17 20:38 98.8 70 18 137/89 (105) Result Diagram: 07/05/17 0530 Objective Remarks GENERAL: Well-nourished, well-developed patient. CARDIOVASCULAR: Regular rate and rhythm without murmurs, gallops, or rubs. RESPIRATORY: Breath sounds equal bilaterally. No accessory muscle use. ABDOMEN/GI: Abdomen soft, non-tender, bowel sounds present. Incision: Clean, dry and intact. [place] intact. Fundus: Firm, non-tender at umbilicus. GENITOURINARY: Light to moderate bleeding. EXTREMITIES: No cyanosis or edema, non-tender, without signs of DVT. Medications and IVs Current Medications Medications (Trade) Dose Ordered Sig/Brayden Route Start Time Stop Time Status Last Admin (NS Flush) 2 ml BID IV FLUSH 07/04/17 21:00 (NS Flush) 2 ml UNSCH PRN IV FLUSH 07/04/17 15:30 (Mylicon Chew) 80 mg QID PRN PO 07/04/17 15:30 07/06/17 08:32 (Tylenol) 650 mg Q6H PRN PO 07/04/17 15:30 (Motrin) 600 mg Q6H PRN PO 07/04/17 15:30 07/07/17 05:54 (Percocet 5-325 Mg) 1 tab Q4H PRN PO 07/04/17 15:30 07/05/17 17:48 (Percocet 5-325 Mg) 2 tab Q4H PRN PO 07/04/17 15:30 07/07/17 07:57 (Karuna-Colace) 2 tab Q12H PRN PO 07/04/17 15:30 07/06/17 23:41 (Ambien) 5 mg HS PRN PO 07/04/17 15:30 (Zofran Odt) 4 mg Q4H PRN PO 07/04/17 15:30 07/04/17 23:28 (Dilaudid Pf Inj) 1 mg Q2H PRN IV 07/04/17 17:30 (Phenergan Inj) 25 mg Q6H PRN IM 07/05/17 01:30 Assessment/Plan Problem List: (1) care following delivery ICD Codes: Z39.2 - Encounter for routine follow-up Assessment and Plan 27 year-old now POD#3 s/p repeat . 1. Postoperative Care - AFVSS - Incision c/d/i - Postop H&H 8.3/24.5, from 9.9/29.3 - Percocet and Motrin prn pain - Encouraged OOB, as tolerated - Advised pelvic rest x 6 weeks - Contraception: Patient did not have bilateral tubal ligation performed as she did not desire this. Discussed contraception with patient this morning, patient no longer desiring Depo-Provera, desires OCPs - Instructed patient to follow-up in 1 week with her OB provider for incision check after stable for hospital discharge wdw OB hospitalist Discharge Planning Stable for discharge home today Sahil Calvin MD R2 Jul 07, 2017 08:24
--- NOTE | 2017-07-07 08:28 | HHI.DCPOC ---
Discharge Care Plan Diagnosis: (1) care following delivery Report Symptoms to Your Doctor -Temperature above 100.5 degrees -Redness, of incision or excessive or foul smelling drainage -Unusual pain or calf pain -Increased vaginal bleeding -Painful or difficulty urinating -Feelings of extreme sadness or anxiety after 2 weeks Goals to Promote Your Health * To maintain your health at the optimal level, follow-up with your OB provider within 1 week after hospital discharge for an incision check. Directions to Meet Your Goals Take your medications as prescribed Follow your dietary instruction Follow activity as directed Ensure plenty of rest for recovery Drink fluids for hydration Keep your appointments as scheduled Take your immunizations and boosters as scheduled If your symptoms worsen call your PCP, if no PCP go to Urgent Care Center or Emergency Room Smoking is Dangerous to Your Health. Avoid second hand smoke Call the 24-hour crisis hotline for domestic abuse at Sahil Calvin MD R2 Jul 07, 2017 08:28
[2017-07-07] MEDS ORDERED: IBUP-232 PO (08:33)
[2017-07-07] MEDS ORDERED: PERI PO (08:33)
[2017-07-07] MEDS ORDERED: OXYC1TAB63 PO (08:33)
[2017-07-07] MEDS: DOCUSATE SODIUM 50 MG/SENNA 8.6 MG TAB PO PRN (13:19)
== END 2017-07-07 13:35 | disposition home or self-care (01) | DRG 766 ==
LOC: H2EB 12:04 → H1EA 16:54
PROVIDERS: ADMIT Obstetrics & Gynecology; ATTEND Obstetrics & Gynecology
PROC: 10D00Z1 Extraction of Products of Conception, Low, Open Approach (ICD-10-PCS; principal; 2017-07-04)
DX: O34.219 Maternal care for unspecified type scar from previous cesarean delivery (principal); D64.9 Anemia, unspecified; O99.02 Anemia complicating childbirth; Z30.09 Encounter for other general counseling and advice on contraception; Z3A.39 39 weeks gestation of pregnancy; Z37.0 Single live birth
CPT/HCPCS: 59025; 80307; 81001; 85025; 86850; 86900; 86901; 87086; 90715; J0131; J0690; J1100; J1885; J2270; J2274; J2405; J2550; J2590; J7120; Q0163

== ENCOUNTER 2017-07-14 12:23 | Emergency (ER) | payer MEDICAID ==
[2017-07-14] VITALS (8 sets, daily range): BP systolic 160–211; BP diastolic 81–104; PULSE 60–72; RESP 14–16; TEMP 98.3; O2SAT 100
[~2017-07-14] VITALS: Ht 165.1 cm; Wt 100.0 kg
[~2017-07-14 12:23] MED LIST changes: +IBUP-232 PO; +OXYC1TAB63 PO; +PERI PO; -PREN1CAP33 PO; -ZOFR8TAB PO
[2017-07-14] MEDS ORDERED: SODIUM CHLORIDE 0.9% FLUSH 10 ML FLUSH IVF PRN (13:45)
[2017-07-14] MEDS ORDERED: hydrALAZINE HCL 20 MG/ML VIAL IV PUSH ONE (13:45)
[2017-07-14 14:28] LABS: AUTOMATED NEUTROPHIL # 4.8 TH/MM3 (1.8-7.7); BASOPHIL % 0.3 % (0.0-2.0); EOSINOPHIL # 0.2 TH/MM3 (0-0.4); EOSINOPHIL % 2.5 % (0.0-4.0); HEMOGLOBIN 8.9 GM/DL (11.6-15.3); LYMPH % 26.1 % (9.0-44.0); MEAN CELL VOLUME 88.3 FL (80.0-100.0); MEAN CORPUSCULAR HGB CONC 32.9 % (32.0-36.0); MEAN PLATELET VOLUME 7.4 FL (7.0-11.0); MONOCYTE # 0.6 TH/MM3 (0-0.9); NEUT % 63.1 % (16.0-70.0); PLATELET COUNT 461 TH/MM3 (150-450); RED BLOOD COUNT 3.06 MIL/MM3 (4.00-5.30); RED CELL DISTRIBUTION WIDTH 12.3 % (11.6-17.2); WHITE BLOOD COUNT 7.6 TH/MM3 (4.0-11.0)
[2017-07-14] MEDS ORDERED: cloNIDine HCL 0.1 MG TAB PO ONE (14:30)
[2017-07-14 14:36] LABS: INTERNATIONAL NORMALIZED RATIO 1.1 RATIO; PROTHROMBIN TIME - PATIENT 10.7 SEC (9.8-11.6)
[2017-07-14 14:40] LABS: ALBUMIN 2.8 GM/DL (3.4-5.0); ALT (GPT) 18 U/L (10-53); AST (GOT) 10 U/L (15-37); BICARBONATE 27.5 MEQ/L (21.0-32.0); BLOOD UREA NITROGEN 13 MG/DL (7-18); C-REACTIVE PROTEIN 1.32 MG/DL (0.00-0.30); CALCIUM 8.2 MG/DL (8.5-10.1); CHLORIDE 107 MEQ/L (98-107); CREATININE 0.52 MG/DL (0.50-1.00); GLOMERULAR FILTRATION RATE 172 ML/MIN (>89); GLUCOSE,RANDOM 80 MG/DL (74-106); SODIUM (NA) 143 MEQ/L (136-145)
[2017-07-14 14:47] LABS: ALKALINE PHOSPHATASE 88 U/L (45-117); TOTAL BILIRUBIN ADULT 0.4 MG/DL (0.2-1.0); TOTAL PROTEIN 6.8 GM/DL (6.4-8.2); TROPONIN I LESS THAN 0.02 NG/ML (0.02-0.05)
[2017-07-14] MEDS ORDERED: LABETALOL HCL 100 MG/20 ML VIAL IV PUSH ONE ×3 (16:30→17:45)
--- NOTE | 2017-07-14 16:55 | PD ---
Physical Exam Narrative Patient was seen by my community relations assistant and me. Data Data Last Documented VS Vital Signs Date Time Temp Pulse Resp B/P (MAP) Pulse Ox O2 Delivery O2 Flow Rate FiO2 07/14/17 17:31 62 16 211/98 (135) 100 Room Air 07/14/17 12:35 98.3 Orders Orders Electrocardiogram (07/14/17 13:40) Ckmb (Isoenzyme) Profile (07/14/17 13:40) Complete Blood Count With Diff (07/14/17 13:40) Prothrombin Time / Inr (Pt) (07/14/17 13:40) Act Partial Throm Time (Ptt) (07/14/17 13:40) Troponin I (07/14/17 13:40) Ecg Monitoring (07/14/17 13:40) Bilateral Bp Monitoring (07/14/17 13:40) Iv Access Insert/Monitor (07/14/17 13:40) Oximetry (07/14/17 13:40) Oxygen Administration (07/14/17 13:40) Sodium Chloride 0.9% Flush (Ns Flush) (07/14/17 13:45) Comprehensive Metabolic Panel (07/14/17 13:40) C-Reactive Protein (Crp) (07/14/17 13:40) Urinalysis - C+S If Indicated (07/14/17 13:40) Hydralazine Inj (Apresoline Inj) (07/14/17 13:45) Abscess Culture And Gram Stain (07/14/17 13:40) Clonidine (Catapres) (07/14/17 14:30) CKMB (07/14/17 14:10) CKMB% (07/14/17 14:10) Labetalol Inj (Trandate Inj) (07/14/17 16:30) Labetalol Inj (Trandate Inj) (07/14/17 17:00) Labetalol Inj (Trandate Inj) (07/14/17 17:45) Ketorolac Inj (Toradol Inj) (07/14/17 17:45) Acetaminophen (Tylenol) (07/14/17 17:45) Ed Discharge Order (07/14/17 18:23) Labs Laboratory Tests Test 07/14/17 14:10 07/14/17 16:25 White Blood Count 7.6 TH/MM3 Red Blood Count 3.06 MIL/MM3 Hemoglobin 8.9 GM/DL Hematocrit 27.0 % Mean Corpuscular Volume 88.3 FL Mean Corpuscular Hemoglobin 29.0 PG Mean Corpuscular Hemoglobin Concent 32.9 % Red Cell Distribution Width 12.3 % Platelet Count 461 TH/MM3 Mean Platelet Volume 7.4 FL Neutrophils (%) (Auto) 63.1 % Lymphocytes (%) (Auto) 26.1 % Monocytes (%) (Auto) 8.0 % Eosinophils (%) (Auto) 2.5 % Basophils (%) (Auto) 0.3 % Neutrophils # (Auto) 4.8 TH/MM3 Lymphocytes # (Auto) 2.0 TH/MM3 Monocytes # (Auto) 0.6 TH/MM3 Eosinophils # (Auto) 0.2 TH/MM3 Basophils # (Auto) 0.0 TH/MM3 CBC Comment DIFF FINAL Differential Comment Prothrombin Time 10.7 SEC Prothromb Time International Ratio 1.1 RATIO Activated Partial Thromboplast Time 24.0 SEC Blood Urea Nitrogen 13 MG/DL Creatinine 0.52 MG/DL Random Glucose 80 MG/DL Total Protein 6.8 GM/DL Albumin 2.8 GM/DL Calcium Level 8.2 MG/DL Alkaline Phosphatase 88 U/L Aspartate Amino Transf (AST/SGOT) 10 U/L Alanine Aminotransferase (ALT/SGPT) 18 U/L Total Bilirubin 0.4 MG/DL Sodium Level 143 MEQ/L Potassium Level 3.6 MEQ/L Chloride Level 107 MEQ/L Carbon Dioxide Level 27.5 MEQ/L Anion Gap 9 MEQ/L Estimat Glomerular Filtration Rate 172 ML/MIN Total Creatine Kinase 107 U/L Creatine Kinase MB 0.9 NG/ML Troponin I LESS THAN 0.02 NG/ML C-Reactive Protein 1.32 MG/DL Urine Color LIGHT-YELLOW Urine Turbidity CLEAR Urine pH 7.0 Urine Specific [place] 1.014 Urine Protein NEG mg/dL Urine Glucose (UA) NEG mg/dL Urine Ketones NEG mg/dL Urine Occult Blood NEG Urine Nitrite NEG Urine Bilirubin NEG Urine Urobilinogen LESS THAN 2.0 MG/DL Urine Leukocyte Esterase MOD Urine WBC 2 /hpf Urine Squamous Epithelial Cells 1 /hpf Urine Mucus FEW /lpf Microscopic Urinalysis Comment CULT NOT INDICATED MDM Supervised Visit with DARYL: Yes Narrative Course 27 years old female with elevated blood pressure. Patient is 1 week . Diagnosis Primary Impression: Hypertension Qualified Codes: I10 - Essential (primary) hypertension Patient Instructions: General Instructions Med/Other Pt SpecificInfo: Prescription(s) given Scripts [Bactroban Ointment] No Conflict Check 1 APPL TOPICAL BID, #1 Prov: Matt Alonso MD 07/14/17 Sulfamethoxazole-Trimethoprim (Bactrim DS) 800-160 Mg Tab 1 TAB PO BID for Infection, #14 TAB 0 Refills Prov: Matt Alonso MD 07/14/17 Atenolol (Atenolol) 25 Mg Tab 25 MG PO DAILY for Blood Pressure Management, #30 TAB Prov: Matt Alonso MD 07/14/17 Amlodipine (Norvasc) 10 Mg Tab 10 MG PO DAILY for Blood Pressure Management, #30 TAB 0 Refills Prov: Matt Alonso MD 07/14/17 Disposition: 01 DISCHARGE HOME Condition: Stable Matt Alonso MD Jul 14, 2017 16:55
[2017-07-14 16:56] LABS: BILIRUBIN, URINE NEG (NEG); BLOOD, URINE NEG (NEG); GLUCOSE,URINE NEG (NEG); KETONE, URINE NEG (NEG); MUCUS URINE FEW /lpf (OCC); NITRITE,URINE NEG (NEG); SQUAMOUS EPITHELIAL CELL URINE 1 /hpf (0-5); URINE COLOR LIGHT-YELLOW (YELLW/STRAW); URINE LEUKOCYTE ESTERASE MOD (NEG)
[2017-07-14] MEDS ORDERED: KETOROLAC TROMETHAMINE 30 MG/ML (IVP) VIAL IV PUSH ONE (17:45)
[2017-07-14] MEDS ORDERED: ACETAMINOPHEN 325 MG TAB PO ONE (17:45)
--- NOTE | 2017-07-14 17:59 | PD ---
HPI Chief Complaint: Skin Problem Time Seen by Provider: 13:34 Travel History International Travel<30 days: No Contact w/Intl Traveler<30days: No Traveled to known affect area: No History of Present Illness HPI 27-year-old female presents emergency department with concerned about recent incision site with drainage and tenderness in the right lateral edge. Patient had a 10 days ago. She states this isr[place] were removed 2 days ago. She states she noted some drainage from the lateral right and, with localized tenderness noted. Patient is also complaining about a headache for the last 2 weeks, and noted that her blood pressure was elevated in triage. Patient denies nausea or vomiting. She has no abdominal pain per se, other than at the incision site. She denies urinary symptoms. She has no fever or chills. Patient has no history of hypertension in the past according to her. She had no signs of preeclampsia during her . She is not breast-feeding. This was her third . The baby is doing well. She has no known drug allergies. PFSH Past Medical History Medical History: Denies Significant Hx Diminished Hearing: No Immunizations Current: Yes Tetanus Vaccination: < 5 Years Influenza Vaccination: No ?: Not : 2 Para: 2 Past Surgical History Section: Yes (X 2) Social History Alcohol Use: No Tobacco Use: No Substance Use: No Allergies-Medications (Allergen,Severity, Reaction): Coded Allergies: No Known Allergies (Verified Allergy, Unknown, 07/14/17) Reported Meds & Prescriptions Reported Meds & Active Scripts Active Gnp Senna Plus 8.6-50 mg (Sennosides-Docusate Sodium) 8.6 Mg-50 Mg Tab 2 Tab PO Q12H PRN Ibuprofen 600 Mg Tab 600 Mg PO Q6H PRN Review of Systems Except as stated in HPI: all other systems reviewed are Neg General / Constitutional: No: Fever Eyes: No: Visual changes HENT: Positive: Headaches, No: Vertigo, Lightheadedness, Sore Throat, Rhinitis , Rhinorrhea, Congestion, Nosebleed, Neck Stiffness, Neck Pain, Dental Difficulties, Earache Cardiovascular: No: Chest Pain or Discomfort Respiratory: No: Cough, Shortness of Breath, Wheezing Gastrointestinal: No: Nausea, Vomiting, Diarrhea, Abdominal Pain Genitourinary: Positive: Other (See history of present illness.), No: Urgency, Frequency, Dysuria Musculoskeletal: No: Pain Skin: Positive Lesions (See history of present illness per), No Rash Neurologic: No: Weakness Psychiatric: No: Depression Endocrine: No: Polydipsia Hematologic/Lymphatic: No: Easy Bruising Physical Exam Narrative GENERAL: Patient appears in mild distress per SKIN: Warm and dry. Normal color. Normal turgor. incision site is inspected showing small area of incision dehiscence on the right lateral and with a small amount of yellowish drainage. There is no sign of deep abscess. There is no erythema. Culture is obtained. HEAD: Atraumatic. Normocephalic. EYES: Pupils equal and round. No scleral icterus. No injection or drainage. ENT: No nasal bleeding or discharge. Mucous membranes pink and moist. Pharynx is clear. Airways patent NECK: Trachea midline. No JVD. Supple and nontender. CARDIOVASCULAR: Regular rate and rhythm. RESPIRATORY: No accessory muscle use. Clear to auscultation. Breath sounds equal bilaterally. GASTROINTESTINAL: Abdomen soft, non-tender, nondistended. Hepatic and splenic margins not palpable. MUSCULOSKELETAL: Extremities without clubbing, cyanosis, or edema. No obvious deformities. NEUROLOGICAL: Awake and alert. No obvious cranial nerve deficits. Motor grossly within normal limits. Five out of 5 muscle strength in the arms and legs. Normal speech. PSYCHIATRIC: Appropriate mood and affect; insight and judgment normal. Data Data Last Documented VS Vital Signs Date Time Temp Pulse Resp B/P (MAP) Pulse Ox O2 Delivery O2 Flow Rate FiO2 07/14/17 17:31 62 16 211/98 (135) 100 Room Air 07/14/17 12:35 98.3 Orders Orders Electrocardiogram (07/14/17 13:40) Ckmb (Isoenzyme) Profile (07/14/17 13:40) Complete Blood Count With Diff (07/14/17 13:40) Prothrombin Time / Inr (Pt) (07/14/17 13:40) Act Partial Throm Time (Ptt) (07/14/17 13:40) Troponin I (07/14/17 13:40) Ecg Monitoring (07/14/17 13:40) Bilateral Bp Monitoring (07/14/17 13:40) Iv Access Insert/Monitor (07/14/17 13:40) Oximetry (07/14/17 13:40) Oxygen Administration (07/14/17 13:40) Sodium Chloride 0.9% Flush (Ns Flush) (07/14/17 13:45) Comprehensive Metabolic Panel (07/14/17 13:40) C-Reactive Protein (Crp) (07/14/17 13:40) Urinalysis - C+S If Indicated (07/14/17 13:40) Hydralazine Inj (Apresoline Inj) (07/14/17 13:45) Abscess Culture And Gram Stain (07/14/17 13:40) Clonidine (Catapres) (07/14/17 14:30) CKMB (07/14/17 14:10) CKMB% (07/14/17 14:10) Labetalol Inj (Trandate Inj) (07/14/17 16:30) Labetalol Inj (Trandate Inj) (07/14/17 17:00) Labetalol Inj (Trandate Inj) (07/14/17 17:45) Ketorolac Inj (Toradol Inj) (07/14/17 17:45) Acetaminophen (Tylenol) (07/14/17 17:45) Labs Laboratory Tests Test 07/14/17 14:10 07/14/17 16:25 White Blood Count 7.6 TH/MM3 Red Blood Count 3.06 MIL/MM3 Hemoglobin 8.9 GM/DL Hematocrit 27.0 % Mean Corpuscular Volume 88.3 FL Mean Corpuscular Hemoglobin 29.0 PG Mean Corpuscular Hemoglobin Concent 32.9 % Red Cell Distribution Width 12.3 % Platelet Count 461 TH/MM3 Mean Platelet Volume 7.4 FL Neutrophils (%) (Auto) 63.1 % Lymphocytes (%) (Auto) 26.1 % Monocytes (%) (Auto) 8.0 % Eosinophils (%) (Auto) 2.5 % Basophils (%) (Auto) 0.3 % Neutrophils # (Auto) 4.8 TH/MM3 Lymphocytes # (Auto) 2.0 TH/MM3 Monocytes # (Auto) 0.6 TH/MM3 Eosinophils # (Auto) 0.2 TH/MM3 Basophils # (Auto) 0.0 TH/MM3 CBC Comment DIFF FINAL Differential Comment Prothrombin Time 10.7 SEC Prothromb Time International Ratio 1.1 RATIO Activated Partial Thromboplast Time 24.0 SEC Blood Urea Nitrogen 13 MG/DL Creatinine 0.52 MG/DL Random Glucose 80 MG/DL Total Protein 6.8 GM/DL Albumin 2.8 GM/DL Calcium Level 8.2 MG/DL Alkaline Phosphatase 88 U/L Aspartate Amino Transf (AST/SGOT) 10 U/L Alanine Aminotransferase (ALT/SGPT) 18 U/L Total Bilirubin 0.4 MG/DL Sodium Level 143 MEQ/L Potassium Level 3.6 MEQ/L Chloride Level 107 MEQ/L Carbon Dioxide Level 27.5 MEQ/L Anion Gap 9 MEQ/L Estimat Glomerular Filtration Rate 172 ML/MIN Total Creatine Kinase 107 U/L Creatine Kinase MB 0.9 NG/ML Troponin I LESS THAN 0.02 NG/ML C-Reactive Protein 1.32 MG/DL Urine Color LIGHT-YELLOW Urine Turbidity CLEAR Urine pH 7.0 Urine Specific [place] 1.014 Urine Protein NEG mg/dL Urine Glucose (UA) NEG mg/dL Urine Ketones NEG mg/dL Urine Occult Blood NEG Urine Nitrite NEG Urine Bilirubin NEG Urine Urobilinogen LESS THAN 2.0 MG/DL Urine Leukocyte Esterase MOD Urine WBC 2 /hpf Urine Squamous Epithelial Cells 1 /hpf Urine Mucus FEW /lpf Microscopic Urinalysis Comment CULT NOT INDICATED MDM Medical Decision Making Medical Screen Exam Complete: Yes Emergency Medical Condition: Yes Differential Diagnosis wound infection. Wound dehiscence. Cellulitis. Hypertension. preeclampsia. Headache. Narrative Course Patient appears medically stable at time of exam. Cultures taken of the incision site. Labs ordered including CBC, CMP, cardiac studies, CRP, coagulation studies, urinalysis. Clonidine 0.1 mg p.o EKG is ordered showing normal sinus rhythm without significant ST changes. Labs come back showing. Mild anemia with a hemoglobin of 8.9, hematocrit 27.0, platelets are elevated at 461. Coagulation studies shows a PT of 10.7, INR is 1.1 Chemistries are unremarkable except for calcium of 8.2, AST is 10, troponin is normal at less than 0.02, C-reactive protein is elevated at 1.32, and albumin is low at 2.8 Urinalysis is unremarkable Patient and labs are discussed and reviewed with Dr. Alonso. Blood pressure remains elevated after the clonidine. Patient was given labetalol 10 mg IV, [address] Alonso Patient was given acetaminophen 650 mg p.o., as well as ketorolac 30 mg IV. Blood pressure is reassessed at 1820 hrs., and found to be 166/81. Patient is felt to be stable for discharge home. She will be continued on Norvasc 10 mg daily, as well as atenolol 25 mg daily. Patient also started on Bactrim DS twice daily for 7 days. She is also given Bactroban to apply topically to the incision site area. Patient is recommended to follow-up with her primary care physician next week to ensure blood pressure control as well as improved incision site healing. Diagnosis Primary Impression: Hypertension Qualified Codes: I10 - Essential (primary) hypertension Additional Impression: Dehiscence of incision Qualified Codes: T81.31XA - Disruption of external operation (surgical) wound , not elsewhere classified, initial encounter Referrals: Primary Care Physician Patient Instructions: 2 Gram Sodium Diet (GEN), Cellulitis (ED), General Instructions Additional Instructions: Patient is felt to be stable for discharge home. She will be continued on Norvasc 10 mg daily, as well as atenolol 25 mg daily. Patient also started on Bactrim DS twice daily for 7 days. She is also given Bactroban to apply topically to the incision site area. Patient is recommended to follow-up with her primary care physician next week to ensure blood pressure control as well as improved incision site healing. Med/Other Pt SpecificInfo: Prescription(s) given Disposition: DISCHARGE HOME Condition: Stable Yovany Cole Jul 14, 2017 17:59
[2017-07-14] MEDS ORDERED: AMLO10 PO (18:24)
[2017-07-14] MEDS ORDERED: ATEN25TA PO (18:24)
[2017-07-14] MEDS ORDERED: BACTROBAN OINTMENT TOPICAL (18:44)
[2017-07-14] MEDS ORDERED: BACT800T5 PO (18:44)
--- NOTE | 2017-07-15 15:09 | EKG ---
Date Performed: 07/14/2017 Time Performed: 14:13:40 PTAGE: 27 years EKG: SINUS BRADYCARDIA BORDERLINE ECG PREVIOUS TRACING : 01/15/2017 09.00 Since the previous tracing, no significant change noted DOCTOR: Harpal Cole Interpretating Date/Time 07/15/2017 15:08:10
== END 2017-07-14 18:50 | disposition home or self-care (01) ==
LOC: NEPD 12:23
DX: I10 Essential (primary) hypertension (principal); T81.31XA Disruption of external operation (surgical) wound, not elsewhere classified, initial encounter; R00.1 Bradycardia, unspecified
CPT/HCPCS: 80053; 81001; 82550; 82552; 84484; 85025; 85610; 85730; 86140; 87070; 87077; 87186; 93005; 96374; 96375; 96376; 99284; J1885; 87205